=== PATIENT | female | born 1995 | race Caucasian/White ===

== ENCOUNTER 2019-04-03 13:21 | Emergency (ER) | payer MEDICAID ==
[~2019-04-03] VITALS: Ht 170.2 cm; Wt 131.8 kg
[2019-04-03 13:38] VITALS: BP 145/89; PULSE 80; TEMP 97.7
== END 2019-04-03 14:15 | disposition home or self-care (01) ==
LOC: COL.ER 13:21
DX: S61.411A Laceration without foreign body of right hand, initial encounter (principal); Z23 Encounter for immunization; W45.8XXA Other foreign body or object entering through skin, initial encounter; Y99.0 Civilian activity done for income or pay